=== PATIENT | female | born 1955 | race Caucasian/White ===

== ENCOUNTER → 2019-02-23 | Outpatient (CLI) | payer OTHER ==
[~2019-02-23] MED LIST: ESCI10 PO; HYDACE5 PO; LEVSOD25 PO; PROM25 PO; SUMA25; THYR60; TOPI100
== END | disposition home or self-care (01) ==
LOC: LAB 15:00 → LAB SHORT 15:00
DX: J02.9 Acute pharyngitis, unspecified (principal)
CPT/HCPCS: 87081

== ENCOUNTER 2019-08-18 10:08 | Day surgery (SDC) | payer MEDICARE, BC ==
[~2019-08-18] VITALS: Ht 162.6 cm; Wt 88.5 kg
[~2019-08-18 10:08] MED LIST changes: +BIEST; +CALCIUM 600 +1 EA11 PO; +Dhea Tablet1 EACH PO; +FISH OIL 1,0001 EAC1 PO; +Imitrex100 MG; +METANX CAPSULE1 EACH PO; +Multiple Vitam1 EACH PO; +PROGEST; +Synthroid200 MCG PO; +VITAMIN D35000 UNIT PO; +[UNRECOGNIZED DRUG - OTHER]
--- NOTE | 2019-08-18 11:37 | NUR ---
08/18/19 1137 Mary Grace Shi PATIENTS IV INFILTRATED PRIOR TO START OF PROCEDURE. NEW 20G IV STARTED IN LEFT WRIST. STARTED BY GERRI HARDIN
== END 2019-08-18 12:45 | disposition home or self-care (01) ==
LOC: ORSCSDS 10:08
PROVIDERS: Internal Medicine Gastroenterology
PROC: 0DBL8ZX Excision of Transverse Colon, Via Natural or Artificial Opening Endoscopic, Diagnostic (ICD-10-PCS; principal; 2019-08-18 11:30)
PROC: 0DBN8ZX Excision of Sigmoid Colon, Via Natural or Artificial Opening Endoscopic, Diagnostic (ICD-10-PCS; principal; 2019-08-18 11:30)
DX: Z12.11 Encounter for screening for malignant neoplasm of colon (principal); D12.3 Benign neoplasm of transverse colon; K63.5 Polyp of colon; E03.9 Hypothyroidism, unspecified; K64.8 Other hemorrhoids; E66.9 Obesity, unspecified; Z68.33 Body mass index [BMI] 33.0-33.9, adult; Z79.899 Other long term (current) drug therapy
CPT/HCPCS: 88305; J2704; J7120

== ENCOUNTER 2023-08-04 07:23 | Day surgery (SDC) | payer MEDICARE, BC ==
[~2023-08-04] VITALS: Ht 162.6 cm; Wt 92.0 kg
[2023-08-04] MEDS ORDERED: OLME20 PO (07:59)
[2023-08-04 09:37] VITALS: BP 140/87
== END 2023-08-04 09:37 | disposition home or self-care (01) ==
LOC: ORSCSDS 07:23
PROVIDERS: Specialist
PROC: 0DJD8ZZ Inspection of Lower Intestinal Tract, Via Natural or Artificial Opening Endoscopic (ICD-10-PCS; principal; 2023-08-04 08:45)
DX: Z12.11 Encounter for screening for malignant neoplasm of colon (principal); Z86.010 Personal history of colon polyps; Z80.0 Family history of malignant neoplasm of digestive organs; K64.8 Other hemorrhoids; I10 Essential (primary) hypertension; E07.9 Disorder of thyroid, unspecified; Z79.899 Other long term (current) drug therapy
CPT/HCPCS: J2405; J2704; J7120